=== PATIENT | female | born 1970 | race Caucasian/White ===

== ENCOUNTER → 2019-02-02 13:38 | Outpatient (CLI) | payer MEDICAID ==
[2014-08-08 07:56] VITALS: BMI 24.7
[~2019-02-02 13:38] MED LIST: ATIVAN0.5 MG PO; DILANTIN100 MG; FIBER-LAX625 MG PO; FLEXERIL10 MG; NORCO 10/325 TA1 TA1 PO; PERCOCET 10/3251 TA1 PO; STOOL SOFTENER240 MG PO; TAMOXIFEN CITRA20 MG PO
== END | disposition home or self-care (01) ==
LOC: D.US 13:38
PROVIDERS: ATTEND Legal Medicine
DX: Z85.3 Personal history of malignant neoplasm of breast (principal)

== ENCOUNTER → 2019-08-11 13:00 | Outpatient (CLI) | payer MEDICAID ==
[2014-08-08 07:56] VITALS: BMI 24.7
== END | disposition home or self-care (01) ==
LOC: D.US 13:00
PROVIDERS: ATTEND Legal Medicine
DX: C50.412 Malignant neoplasm of upper-outer quadrant of left female breast (principal)

== ENCOUNTER 2019-11-10 14:14 | Emergency (ER) | payer MEDICAID ==
[~2019-11-10] VITALS: Ht 157.5 cm; Wt 56.8 kg
[2019-11-10 14:17] VITALS: Ht 157.5 cm; Wt 56.8 kg
[2019-11-10] MEDS ORDERED: NOLVADEX10 M1 PO (14:19)
[2019-11-10] MEDS ORDERED: LISINOPRIL5 MG PO (14:19)
[2019-11-10] MEDS ORDERED: CELEXA20 MG PO (14:20)
[2019-11-10 16:19] VITALS: BP 131/87
== END 2019-11-10 16:56 | disposition home or self-care (01) ==
LOC: D.ER 14:14
DX: M25.572 Pain in left ankle and joints of left foot (principal); M54.9 Dorsalgia, unspecified

== ENCOUNTER → 2020-01-29 22:15 | Outpatient (CLI) | payer MEDICAID ==
[2019-11-10 14:17] VITALS: BMI 22.9
[~2020-01-29 22:15] MED LIST changes: +CELEXA20 MG PO; +LISINOPRIL5 MG PO; +NOLVADEX10 M1 PO
[2020-01-30 01:18] LABS: HEMATOCRIT 45.2 % (36.0-48.0); HEMOGLOBIN 14.7 g/dL (12-16); MCH 30.4 pg (26.0-34.0); MCHC 32.5 g/dL (31.0-37.0); MCV 93.4 fL (80.0-100.0); MEAN PLATELET VOLUME 10.5 fL (7.4-10.4); RBC 4.84 10x6/uL (4.00-5.40); RDW 13.1 % (11.5-14.5); WBC 6.9 10x3/uL (4.8-10.8)
[2020-01-30 01:21] LABS: PLATELET COUNT 292 10x3/uL (130-400)
[2020-01-30 01:28] LABS: ALBUMIN 3.9 g/dL (3.4-5.0); ANION GAP 11.5 mmol/L (8-16); BILIRUBIN - TOTAL 0.17 mg/dL (0.2-1.3); CALCIUM 9.1 mg/dL (8.5-10.1); CARBON DIOXIDE 28.6 mmol/L (21.0-32.0); POTASSIUM - SERUM 4.1 mmol/L (3.5-5.1); PROTEIN - SERUM 7.6 g/dL (6.4-8.2)
[2020-01-30 09:17] LABS: EOSINOPHILS 4 % (0-7); LYMPHOCYTES 26 % (15-50); MONOCYTES 9 % (2-11); NEUTROPHILS 61 % (40-80); PLATELET ESTIMATE NORMAL
[2020-01-30 09:18] LABS: ROULEAUX OCC
== END | disposition home or self-care (01) ==
LOC: D.LABREF 22:15
PROVIDERS: ATTEND Legal Medicine
DX: I10 Essential (primary) hypertension (principal); C50.412 Malignant neoplasm of upper-outer quadrant of left female breast